=== PATIENT | male | born 1955 | race Caucasian/White ===

== ENCOUNTER → 2017-03-14 | Outpatient (REF) | payer OTHER ==
[2017-03-14 13:02] LABS: MEAN CORPUSCULAR HEMOGLOBIN 33.7 pg (27.0-33.0); MEAN CORPUSCULAR HGB CONC 34.9 g/dl (32.0-36.5); MEAN CORPUSCULAR VOLUME 96.4 fl (80.0-96.0); RED CELL DISTRIBUTION WIDTH 13.2 % (11.5-14.5); WHITE BLOOD COUNT 8.7 K/mm3 (4.0-10.0)
[2017-03-14 13:36] LABS: ALBUMIN 4.7 GM/DL (3.2-5.2); ALBUMIN/GLOBULIN RATIO 1.57 (1.00-1.93); ALKALINE PHOSPHATASE 102 U/L (45-117); ALT/SGPT 169 U/L (12-78); ANION GAP 11 MEQ/L (8-16); AST/SGOT 149 U/L (15-37); BILIRUBIN,TOTAL 0.8 MG/DL (0.2-1.0); BLOOD UREA NITROGEN 14 MG/DL (7-18); CALCIUM LEVEL 9.9 MG/DL (8.5-10.1); CARBON DIOXIDE LEVEL 32 MEQ/L (21-32); CHLORIDE LEVEL 95 MEQ/L (98-107); CHOLESTEROL LEVEL 226 MG/DL (<200); CREATININE FOR GFR 0.89 MG/DL (0.70-1.30); GAMMA GLUTAMYLTRANSPEPTIDASE 272 U/L (15-85); GLOMERULAR FILTRATION RATE > 60.0 (>56); GLUCOSE, FASTING 108 MG/DL (70-105); POTASSIUM SERUM 3.6 MEQ/L (3.5-5.1); SODIUM LEVEL 138 MEQ/L (136-145); TOTAL PROTEIN 7.7 GM/DL (6.4-8.2); TRIGLYCERIDES LEVEL 167 MG/DL (<150)
== END ==
LOC: M SFHCCLAY 09:35
PROVIDERS: ATTEND Nurse Practitioner Family
DX: K21.9 Gastro-esophageal reflux disease without esophagitis (principal); I10 Essential (primary) hypertension; R79.89 Other specified abnormal findings of blood chemistry; E78.2 Mixed hyperlipidemia; E55.9 Vitamin D deficiency, unspecified

== ENCOUNTER → 2017-05-30 | Outpatient (REF) | payer OTHER ==
[2017-05-30 16:52] LABS: ALBUMIN 4.4 GM/DL (3.2-5.2); ALBUMIN/GLOBULIN RATIO 1.38 (1.00-1.93); ALKALINE PHOSPHATASE 97 U/L (45-117); ALT/SGPT 105 U/L (12-78); ANION GAP 10 MEQ/L (8-16); AST/SGOT 101 U/L (15-37); BILIRUBIN,TOTAL 0.7 MG/DL (0.2-1.0); BLOOD UREA NITROGEN 15 MG/DL (7-18); CALCIUM LEVEL 9.4 MG/DL (8.5-10.1); CARBON DIOXIDE LEVEL 27 MEQ/L (21-32); CHLORIDE LEVEL 101 MEQ/L (98-107); CREATININE FOR GFR 0.87 MG/DL (0.70-1.30); GAMMA GLUTAMYLTRANSPEPTIDASE 272 U/L (15-85); GLOMERULAR FILTRATION RATE > 60.0 (>56); GLUCOSE, FASTING 139 MG/DL (70-105); POTASSIUM SERUM 4.1 MEQ/L (3.5-5.1); SODIUM LEVEL 138 MEQ/L (136-145); TOTAL PROTEIN 7.6 GM/DL (6.4-8.2)
[2017-05-30 17:25] LABS: BASO % 0.2 % (0.0-1.0); EOS # 0.1 K/mm3 (0.0-0.50); EOS % 0.5 % (0.0-3.0); LARGE UNSTAINED CELL # 0.2 K/mm3 (0.0-0.4); LARGE UNSTAINED CELL % 1.8 % (0.0-4.0); LYMPH % 17.9 % (24.0-44.0); MEAN CORPUSCULAR HEMOGLOBIN 33.4 pg (27.0-33.0); MEAN CORPUSCULAR HGB CONC 35.7 g/dl (32.0-36.5); MEAN CORPUSCULAR VOLUME 93.6 fl (80.0-96.0); MONO # 0.7 K/mm3 (0.0-0.8); MONO % 6.5 % (0.0-5.0); NEUTROPHILS % 73.1 % (36.0-66.0); PLATELET COUNT, AUTOMATED 310 k/mm3 (150-450); RED CELL DISTRIBUTION WIDTH 12.6 % (11.5-14.5)
== END ==
LOC: M SFHCCLAY 13:48
PROVIDERS: ATTEND Family Medicine
DX: R10.32 Left lower quadrant pain (principal)

== ENCOUNTER → 2018-07-02 | Outpatient (REF) | payer OTHER ==
[2018-07-02 11:40] LABS: HEMATOCRIT 43.9 % (42.0-52.0); HEMOGLOBIN 15.4 g/dl (13.5-17.5); MEAN CORPUSCULAR HEMOGLOBIN 32.1 pg (27.0-33.0); MEAN CORPUSCULAR HGB CONC 35.1 g/dl (32.0-36.5); MEAN CORPUSCULAR VOLUME 91.5 fl (80.0-96.0); PLATELET COUNT, AUTOMATED 320 10^3/uL (150-450); RED CELL DISTRIBUTION WIDTH 12.9 % (11.5-14.5); WHITE BLOOD COUNT 9.6 10^3/uL (4.0-10.0)
[2018-07-02 12:12] LABS: TOTAL 25(OH) VITAMIN D 29.2 NG/ML (30.0-100.0)
[2018-07-02 12:28] LABS: ALBUMIN 4.5 GM/DL (3.2-5.2); ALBUMIN/GLOBULIN RATIO 1.45 (1.00-1.93); ALKALINE PHOSPHATASE 79 U/L (45-117); ALT/SGPT 93 U/L (12-78); ANION GAP 10 MEQ/L (8-16); AST/SGOT 75 U/L (7-37); BILIRUBIN,TOTAL 1.2 MG/DL (0.2-1.0); BLOOD UREA NITROGEN 8 MG/DL (7-18); CALCIUM LEVEL 9.5 MG/DL (8.8-10.2); CARBON DIOXIDE LEVEL 31 MEQ/L (21-32); CHLORIDE LEVEL 93 MEQ/L (98-107); CHOLESTEROL LEVEL 225 MG/DL (<200); CREATININE FOR GFR 0.79 MG/DL (0.70-1.30); GAMMA GLUTAMYLTRANSPEPTIDASE 227 U/L (15-85); GLOMERULAR FILTRATION RATE > 60.0 (>49); GLUCOSE, FASTING 108 MG/DL (70-100); HDL CHOLESTEROL 83 MG/DL (>40); LDL CHOLESTEROL 126 MG/DL (<100); NON-HDL-C 142 MG/DL; POTASSIUM SERUM 3.8 MEQ/L (3.5-5.1); SODIUM LEVEL 134 MEQ/L (136-145); TOTAL PROTEIN 7.6 GM/DL (6.4-8.2); TRIGLYCERIDES LEVEL 82 MG/DL (<150)
== END ==
LOC: M SFHCCLAY 07:03
DX: K21.9 Gastro-esophageal reflux disease without esophagitis (principal); E78.2 Mixed hyperlipidemia; E55.9 Vitamin D deficiency, unspecified

== ENCOUNTER → 2019-02-19 | Outpatient (REF) | payer OTHER ==
[2019-02-19 11:43] LABS: HEMOGLOBIN A1c 5.7 %
[2019-02-19 11:47] LABS: ALBUMIN 4.4 GM/DL (3.2-5.2); BILIRUBIN,DIRECT 0.2 MG/DL (0.0-0.2); BILIRUBIN,TOTAL 0.9 MG/DL (0.2-1.0); CHOLESTEROL RISK RATIO 3.36 (<5); TOTAL PROTEIN 6.8 GM/DL (6.4-8.2)
== END ==
LOC: M SFHCCLAY 07:02
PROVIDERS: ATTEND Nurse Practitioner Family
DX: R73.01 Impaired fasting glucose (principal); E78.2 Mixed hyperlipidemia
CPT/HCPCS: 80061; 80076; 82947; 83036; G0463

== ENCOUNTER → 2019-07-30 | Outpatient (REF) | payer OTHER ==
[2019-07-30 11:48] LABS: HEMATOCRIT 47.4 % (42.0-52.0); HEMOGLOBIN 16.3 g/dl (13.5-17.5); MEAN CORPUSCULAR HEMOGLOBIN 32.3 pg (27.0-33.0); MEAN CORPUSCULAR HGB CONC 34.4 g/dl (32.0-36.5); MEAN CORPUSCULAR VOLUME 93.9 fl (80.0-96.0); PLATELET COUNT, AUTOMATED 342 10^3/uL (150-450); RED BLOOD COUNT 5.05 10^6/uL (4.30-6.10); WHITE BLOOD COUNT 7.3 10^3/uL (4.0-10.0)
[2019-07-30 11:52] LABS: ALBUMIN 4.5 GM/DL (3.2-5.2); ALT/SGPT 54 U/L (12-78); BILIRUBIN,TOTAL 1.1 MG/DL (0.2-1.0); BLOOD UREA NITROGEN 8 MG/DL (7-18); CARBON DIOXIDE LEVEL 31 MEQ/L (21-32); CHLORIDE LEVEL 94 MEQ/L (98-107); CHOLESTEROL LEVEL 191 MG/DL (<200); CHOLESTEROL RISK RATIO 2.358 (<5); CREATININE FOR GFR 0.76 MG/DL (0.70-1.30); GLOMERULAR FILTRATION RATE > 60.0 (>49); GLUCOSE, FASTING 110 MG/DL (70-100); HDL CHOLESTEROL 81 MG/DL (>40); LDL CHOLESTEROL 94 MG/DL (<100); NON-HDL-C 110 MG/DL; POTASSIUM SERUM 3.8 MEQ/L (3.5-5.1); SODIUM LEVEL 133 MEQ/L (136-145); TOTAL PROTEIN 7.3 GM/DL (6.4-8.2); TRIGLYCERIDES LEVEL 82 MG/DL (<150)
[2019-07-30 11:56] LABS: TOTAL 25(OH) VITAMIN D 41.8 NG/ML (30.0-100.0)
[2019-07-30 12:51] LABS: HEMOGLOBIN A1c 5.4 %
== END ==
LOC: M SFHCCLAY 07:05
PROVIDERS: ATTEND Nurse Practitioner Family
DX: K21.9 Gastro-esophageal reflux disease without esophagitis (principal); I10 Essential (primary) hypertension; R73.01 Impaired fasting glucose; E78.2 Mixed hyperlipidemia; E55.9 Vitamin D deficiency, unspecified

== ENCOUNTER → 2020-11-09 | Outpatient (CLI) | payer OTHER ==
--- NOTE | 2020-11-10 01:34 | REP ---
INDICATION: SUPRASCAPULAR ENTRPMENT NEUROPATHY OF LEFT SIDE COMPARISON: None. TECHNIQUE: Internal rotation, external rotation, and Y view. FINDINGS: There is subtle blunting to the calcified glenoid rim as well as very subtle early spurring along the inferior margin of the humeral head. The acromioclavicular joint is normal. The subacromial space is normal. No periarticular calcifications or loose bodies identified. 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 <Electronically signed by Francisco Kulkarni > 11/10/20 [id number]
== END ==
LOC: M CLY 15:20
PROVIDERS: ATTEND Physician Assistant
DX: G56.82 Other specified mononeuropathies of left upper limb (principal)

== ENCOUNTER → 2021-08-30 | Outpatient (CLI) | payer OTHER | LOC: M PLAIMG 10:18 | PROVIDERS: ATTEND Nurse Practitioner Family | DX: M25.512 Pain in left shoulder (principal) ==

== ENCOUNTER → 2021-12-11 | Outpatient (REF) | payer OTHER ==
[2021-12-11 11:44] LABS: BASO % 0.6 % (0.0-1.0); EOS # 0.1 10^3/uL (0.0-0.5); EOS % 1.1 % (0.0-3.0); HEMATOCRIT 41.6 % (42.0-52.0); HEMOGLOBIN 14.5 g/dl (13.5-17.5); LYMPH # 1.8 10^3/uL (1.5-5.0); LYMPH % 25.7 % (24.0-44.0); MEAN CORPUSCULAR HEMOGLOBIN 32.7 pg (27.0-33.0); MEAN CORPUSCULAR HGB CONC 34.9 g/dl (32.0-36.5); MEAN CORPUSCULAR VOLUME 93.9 fl (80.0-96.0); MONO % 14.6 % (2.0-8.0); NEUTROPHILS % 57.7 % (36.0-66.0); PLATELET COUNT, AUTOMATED 305 10^3/uL (150-450); RED BLOOD COUNT 4.43 10^6/uL (4.30-6.10)
[2021-12-11 12:12] LABS: HEMOGLOBIN A1c 5.4 %
[2021-12-11 12:39] LABS: ALBUMIN 4.5 GM/DL (3.2-5.2); ALT/SGPT 74 U/L (12-78); BILIRUBIN,TOTAL 1.1 MG/DL (0.2-1.0); BLOOD UREA NITROGEN 11 MG/DL (7-18); CALCIUM LEVEL 9.8 MG/DL (8.8-10.2); CARBON DIOXIDE LEVEL 32 MEQ/L (21-32); CHLORIDE LEVEL 98 MEQ/L (98-107); CHOLESTEROL LEVEL 220 MG/DL (<200); CREATININE FOR GFR 0.79 MG/DL (0.70-1.30); FREE T4 1.02 NG/DL (0.76-1.46); GLOMERULAR FILTRATION RATE > 60.0 (>49); GLUCOSE, FASTING 112 MG/DL (70-100); HDL CHOLESTEROL 88 MG/DL (>40); LDL CHOLESTEROL 107 MG/DL (<100); NON-HDL-C 132 MG/DL; POTASSIUM SERUM 4.1 MEQ/L (3.5-5.1); SODIUM LEVEL 137 MEQ/L (136-145); TOTAL 25(OH) VITAMIN D 61.5 NG/ML (30.0-100.0); TOTAL PROTEIN 7.1 GM/DL (6.4-8.2); TRIGLYCERIDES LEVEL 124 MG/DL (<150)
== END ==
LOC: M SFHCCLAY 07:13
PROVIDERS: ATTEND Nurse Practitioner Family
DX: S29.012A Strain of muscle and tendon of back wall of thorax, initial encounter (principal); G56.82 Other specified mononeuropathies of left upper limb; I10 Essential (primary) hypertension; E78.2 Mixed hyperlipidemia; R73.01 Impaired fasting glucose; E55.9 Vitamin D deficiency, unspecified; J30.89 Other allergic rhinitis; K21.9 Gastro-esophageal reflux disease without esophagitis; W18.30XA Fall on same level, unspecified, initial encounter; Y92.009 Unspecified place in unspecified non-institutional (private) residence as the place of occurrence of the external cause

== ENCOUNTER → 2023-04-04 | Outpatient (REF) | payer MEDICARE | LOC: M SFHCCLAY 15:10 → EEVIPCON 15:10 | PROVIDERS: ATTEND Nurse Practitioner Family | DX: L03.116 Cellulitis of left lower limb (principal) ==

== ENCOUNTER → 2023-04-04 | Outpatient (CLI) | payer MEDICARE | LOC: M CLY 15:02 | PROVIDERS: ATTEND Nurse Practitioner Family | DX: S89.92XD Unspecified injury of left lower leg, subsequent encounter (principal) ==

== ENCOUNTER → 2023-04-30 | Outpatient (CLI) | payer MEDICARE, OTHER | LOC: M RAD 07:31 | PROVIDERS: ATTEND Nurse Practitioner Family | DX: Z12.2 Encounter for screening for malignant neoplasm of respiratory organs (principal); F17.218 Nicotine dependence, cigarettes, with other nicotine-induced disorders; I25.84 Coronary atherosclerosis due to calcified coronary lesion; I70.0 Atherosclerosis of aorta; R91.8 Other nonspecific abnormal finding of lung field ==

== ENCOUNTER → 2023-12-31 | Outpatient (CLI) | payer MEDICARE, OTHER, SELFPAY | LOC: M RAD 10:38 | PROVIDERS: ATTEND Nurse Practitioner Family | DX: R10.30 Lower abdominal pain, unspecified (principal) ==

== ENCOUNTER → 2024-01-26 | Outpatient (REF) | payer MEDICARE ==
[2024-01-26 19:04] LABS: BLOOD UREA NITROGEN 11 MG/DL (9-23); CREATININE FOR GFR 0.91 MG/DL (0.70-1.30); GLOMERULAR FILTRATION RATE > 60.0 (>49)
== END ==
LOC: M LABDRAWC 17:12
PROVIDERS: ATTEND Surgery
DX: R10.30 Lower abdominal pain, unspecified (principal)

== ENCOUNTER → 2024-02-06 | Outpatient (CLI) | payer MEDICARE, OTHER, SELFPAY ==
[~2024-02-06] MED LIST: GASTROGRAFIN SOLUTION 30ML As Ordered ONE; ISOVUE-370 76% 100ML VIAL As Ordered ONE
== END ==
LOC: M RAD 07:36
PROVIDERS: ATTEND Surgery
DX: K40.20 Bilateral inguinal hernia, without obstruction or gangrene, not specified as recurrent (principal); R16.0 Hepatomegaly, not elsewhere classified; K76.0 Fatty (change of) liver, not elsewhere classified; K56.41 Fecal impaction; K57.30 Diverticulosis of large intestine without perforation or abscess without bleeding; M16.0 Bilateral primary osteoarthritis of hip; M25.451 Effusion, right hip; M25.452 Effusion, left hip
CPT/HCPCS: 74178; Q9963; Q9967

== ENCOUNTER → 2024-04-22 | Outpatient (REF) | payer SELFPAY, MEDICARE ==
[2024-04-22 19:26] LABS: APPEARANCE, URINE CLEAR (CLEAR); BACTERIA, URINE AUTO NEGATIVE (NEGATIVE); BILIRUBIN, URINE AUTO NEGATIVE (NEGATIVE); BLOOD, URINE BLOOD NEGATIVE (NEGATIVE); COLOR, URINE YELLOW (YELLOW); GLUCOSE, URINE (UA) AUTO NEGATIVE (NEGATIVE); KETONE, URINE AUTO NEGATIVE (NEGATIVE); LEUKOCYTE ESTERASE, URINE AUTO NEGATIVE (NEGATIVE); NITRITE, URINE AUTO NEGATIVE (NEGATIVE); PROTEIN, URINE AUTO NEGATIVE (NEGATIVE); RBC, URINE AUTO 0 /HPF (0-3); SPECIFIC GRAVITY URINE AUTO 1.009 (1.002-1.035); SQUAMOUS EPITHELIAL CELL UR AU 0 /HPF (0-6); UROBILINOGEN, URINE AUTO 0.2 mg/dL (0.0-2.0); WBC, URINE AUTO 1 /HPF (0-3)
== END ==
LOC: M SMT 16:56
PROVIDERS: ATTEND Urology
DX: N28.82 Megaloureter (principal)

== ENCOUNTER → 2024-08-23 | Outpatient (CLI) | payer MEDICARE | LOC: M CLY 11:29 | PROVIDERS: ATTEND Family Medicine | DX: M16.0 Bilateral primary osteoarthritis of hip (principal); Z53.9 Procedure and treatment not carried out, unspecified reason ==

== ENCOUNTER → 2024-08-23 | Outpatient (CLI) | payer MEDICARE | LOC: M CLY 11:34 | PROVIDERS: ATTEND Family Medicine | DX: M16.0 Bilateral primary osteoarthritis of hip (principal) ==

== ENCOUNTER → 2024-08-31 | Outpatient (CLI) | payer MEDICARE, OTHER | LOC: M RAD 14:18 | PROVIDERS: ATTEND Nurse Practitioner Family | DX: F17.218 Nicotine dependence, cigarettes, with other nicotine-induced disorders (principal) ==

== ENCOUNTER → 2024-09-27 | Outpatient (REF) | payer MEDICARE, OTHER ==
[2024-09-27 12:38] LABS: BASO # 0.1 10^3/uL (0.0-0.2); BASO % 0.6 % (0.0-1.0); EOS # 0.1 10^3/uL (0.0-0.5); EOS % 1.3 % (0.0-3.0); HEMATOCRIT 41.4 % (42.0-52.0); HEMOGLOBIN 14.7 g/dl (13.5-17.5); LYMPH # 2.1 10^3/uL (1.5-5.0); LYMPH % 25.1 % (24.0-44.0); MEAN CORPUSCULAR HEMOGLOBIN 33.6 pg (27.0-33.0); MEAN CORPUSCULAR HGB CONC 35.5 g/dl (32.0-36.5); MEAN CORPUSCULAR VOLUME 94.5 fl (80.0-96.0); NEUTROPHILS # 5.2 10^3/uL (1.5-8.5); NEUTROPHILS % 60.8 % (36.0-66.0); PLATELET COUNT, AUTOMATED 289 10^3/uL (150-450); RED BLOOD COUNT 4.38 10^6/uL (4.30-6.10); WHITE BLOOD COUNT 8.5 10^3/uL (4.0-10.0)
[2024-09-27 13:12] LABS: ALBUMIN 4.3 G/DL (3.2-5.2)
[2024-09-27 13:21] LABS: FERRITIN 897.8 NG/ML (10.5-307.3)
== END ==
LOC: M LABDRAWC 09:03
PROVIDERS: ATTEND Orthopaedic Surgery
DX: M25.552 Pain in left hip (principal)

== ENCOUNTER → 2024-09-27 | Outpatient (REF) | payer MEDICARE, OTHER ==
[2024-09-27 11:50] LABS: INR 0.98; PROTHROMBIN TIME 13.3 SECONDS (12.5-14.5)
[2024-09-27 13:06] LABS: HEMOGLOBIN A1c 4.8 % (4.0-6.0)
[2024-09-27 13:14] LABS: CHOLESTEROL RISK RATIO 2.12 (<5); HDL CHOLESTEROL 109.3 MG/DL (>40); LDL CHOLESTEROL 107.1 MG/DL (<100); NON-HDL-C 122.7 MG/DL; PSA SCREENING 4.71 NG/ML (< 4.00)
[2024-09-27 13:17] LABS: ALBUMIN 4.2 G/DL (3.2-5.2); ALKALINE PHOSPHATASE 238 U/L (40-129); ALT/SGPT 113 U/L (7.0-40); AST/SGOT 176 U/L (<34); BILIRUBIN,TOTAL 1.8 MG/DL (0.3-1.2); BLOOD UREA NITROGEN 18 MG/DL (9-23); CALCIUM LEVEL 9.6 MG/DL (8.3-10.6); CARBON DIOXIDE LEVEL 32 MMOL/L (20-31); CHLORIDE LEVEL 91 MMOL/L (98-107); GLOMERULAR FILTRATION RATE > 60.0 (>49); GLUCOSE, FASTING 109 MG/DL (74-106); SODIUM LEVEL 135 MMOL/L (136-145); TOTAL PROTEIN 7.6 G/DL (5.7-8.2)
[2024-09-27 13:18] LABS: THYROID STIMULATING HORMONE 1.363 uIU/ML (0.55-4.78)
[2024-09-27 13:20] LABS: FREE T4 1.4 NG/DL (0.89-1.76)
== END ==
LOC: M SFHCCLAY 08:54
PROVIDERS: ATTEND Nurse Practitioner Family
DX: I10 Essential (primary) hypertension (principal); M16.0 Bilateral primary osteoarthritis of hip; M25.552 Pain in left hip; Z12.5 Encounter for screening for malignant neoplasm of prostate
CPT/HCPCS: 80053; 80061; 82728; 83036; 83550; 84439; 84443; 85025; 85610; G0103

== ENCOUNTER → 2024-09-30 | Outpatient (REF) | payer MEDICARE, OTHER ==
[2024-09-30 12:58] LABS: HEPATITIS B SURFACE ANTIGEN NEGATIVE (NEGATIVE)
[2024-09-30 13:19] LABS: HEPATITIS B CORE ANTIBODY IGM NEGATIVE (NEGATIVE); HEPATITIS C VIRUS ABY INDEX < 0.02 INDEX (<0.8)
[2024-09-30 13:52] LABS: ALBUMIN 4.5 G/DL (3.2-5.2); ALKALINE PHOSPHATASE 259 U/L (40-129); ALT/SGPT 119 U/L (7.0-40); AST/SGOT 184 U/L (<34); BILIRUBIN,TOTAL 1.2 MG/DL (0.3-1.2); BLOOD UREA NITROGEN 14 MG/DL (9-23); CALCIUM LEVEL 10.2 MG/DL (8.3-10.6); CARBON DIOXIDE LEVEL 32 MMOL/L (20-31); CHLORIDE LEVEL 91 MMOL/L (98-107); CREATININE FOR GFR 0.79 MG/DL (0.70-1.30); GLOMERULAR FILTRATION RATE > 60.0 (>49); GLUCOSE, FASTING 128 MG/DL (74-106); MAGNESIUM LEVEL 1.9 MG/DL (1.8-2.4); POTASSIUM SERUM 2.8 MMOL/L (3.5-5.1); SODIUM LEVEL 136 MMOL/L (136-145); TOTAL PROTEIN 7.7 G/DL (5.7-8.2)
== END ==
LOC: M SFHCCLAY 08:47
PROVIDERS: ATTEND Family Medicine
DX: Z01.89 Encounter for other specified special examinations (principal); E87.6 Hypokalemia; R74.8 Abnormal levels of other serum enzymes

== ENCOUNTER 2024-10-04 10:56 | Outpatient (RCR) | payer MEDICARE, OTHER | END 2024-10-29 | LOC: M PT 10:56 | PROVIDERS: ATTEND Orthopaedic Surgery | DX: M25.552 Pain in left hip (principal) ==

== ENCOUNTER → 2024-10-04 | Outpatient (REF) | payer MEDICARE, OTHER ==
[2024-10-04 13:35] LABS: ALKALINE PHOSPHATASE 221 U/L (40-129); ALT/SGPT 111 U/L (7.0-40); AST/SGOT 118 U/L (<34); BILIRUBIN,TOTAL 0.7 MG/DL (0.3-1.2); BLOOD UREA NITROGEN 12 MG/DL (9-23); CALCIUM LEVEL 10.5 MG/DL (8.3-10.6); CARBON DIOXIDE LEVEL 34 MMOL/L (20-31); CHLORIDE LEVEL 92 MMOL/L (98-107); CREATININE FOR GFR 0.76 MG/DL (0.70-1.30); GLOMERULAR FILTRATION RATE > 60.0 (>49); GLUCOSE, FASTING 119 MG/DL (74-106); POTASSIUM SERUM 3.2 MMOL/L (3.5-5.1); SODIUM LEVEL 136 MMOL/L (136-145); TOTAL PROTEIN 7.4 G/DL (5.7-8.2)
== END ==
LOC: M SFHCCLAY 08:27
PROVIDERS: ATTEND Family Medicine
DX: I10 Essential (primary) hypertension (principal)

== ENCOUNTER → 2024-10-08 | Outpatient (REF) | payer MEDICARE, OTHER ==
[2024-10-08 14:44] LABS: ALBUMIN 4.1 G/DL (3.2-5.2); ALKALINE PHOSPHATASE 220 U/L (40-129); ALT/SGPT 89 U/L (7.0-40); AST/SGOT 85 U/L (<34); BILIRUBIN,TOTAL 0.8 MG/DL (0.3-1.2); BLOOD UREA NITROGEN 12 MG/DL (9-23); CALCIUM LEVEL 9.4 MG/DL (8.3-10.6); CARBON DIOXIDE LEVEL 28 MMOL/L (20-31); CHLORIDE LEVEL 100 MMOL/L (98-107); CREATININE FOR GFR 0.64 MG/DL (0.70-1.30); GLOMERULAR FILTRATION RATE > 60.0 (>49); GLUCOSE, FASTING 104 MG/DL (74-106); SODIUM LEVEL 138 MMOL/L (136-145)
== END ==
LOC: M SFHCCLAY 10:09
PROVIDERS: ATTEND Family Medicine
DX: R79.89 Other specified abnormal findings of blood chemistry (principal)

== ENCOUNTER → 2024-11-15 | Outpatient (REF) | payer MEDICARE, OTHER ==
[2024-11-15 17:48] LABS: ALBUMIN 3.9 G/DL (3.2-5.2); ALKALINE PHOSPHATASE 295 U/L (40-129); ALT/SGPT 73 U/L (7.0-40); AST/SGOT 104 U/L (<34); BLOOD UREA NITROGEN 6 MG/DL (9-23); CALCIUM LEVEL 9.2 MG/DL (8.3-10.6); CARBON DIOXIDE LEVEL 30 MMOL/L (20-31); CHLORIDE LEVEL 97 MMOL/L (98-107); CREATININE FOR GFR 0.63 MG/DL (0.70-1.30); GLOMERULAR FILTRATION RATE > 60.0 (>49); GLUCOSE, FASTING 116 MG/DL (74-106); POTASSIUM SERUM 4.3 MMOL/L (3.5-5.1); SODIUM LEVEL 139 MMOL/L (136-145); TOTAL PROTEIN 7.1 G/DL (5.7-8.2)
== END ==
LOC: M SFHCCLAY 11:19
PROVIDERS: ATTEND Nurse Practitioner Family
DX: E88.89 Other specified metabolic disorders (principal)

== ENCOUNTER → 2024-11-30 | Outpatient (CLI) | payer MEDICARE, OTHER ==
[~2024-11-30] MED LIST changes: -GASTROGRAFIN SOLUTION 30ML As Ordered ONE
== END ==
LOC: M RAD 08:25
PROVIDERS: ATTEND Urology
DX: N28.82 Megaloureter (principal)
CPT/HCPCS: 74178; Q9967

== ENCOUNTER → 2024-12-16 | Outpatient (REF) | payer MEDICARE, OTHER | LOC: M SFHCCLAY 08:04 | PROVIDERS: ATTEND Urology | DX: R97.20 Elevated prostate specific antigen [PSA] (principal) ==

== ENCOUNTER → 2025-02-01 | Outpatient (REF) | payer MEDICARE, OTHER | LOC: M SMT 13:43 | PROVIDERS: ATTEND Urology | DX: R97.20 Elevated prostate specific antigen [PSA] (principal) ==

== ENCOUNTER → 2025-04-18 | Outpatient (CLI) | payer MEDICARE, OTHER ==
[~2025-04-18] MED LIST changes: +ASPI81CH33 PO; +ATEN100T PO; +B-122500 PO; +CETI5SOL3 PO; +CYCL-707 PO; +DICY-61 PO; +FELO10TA28 PO; +FOLI0.4T5 PO; +HYDR-3490 PO; -ISOVUE-370 76% 100ML VIAL As Ordered ONE; +MAGN100T PO; +MELA10CA PO; +OMEG10002 PO; +OPTI0.5D2 OP; +PANT40TA29 PO; +POTA-298 PO; +THERTAB52 PO; +VITA100093 PO; +VITA500C3 PO; +ZINC100T3 PO
== END ==
LOC: M CLY 08:00
PROVIDERS: ATTEND Urology
DX: Z01.818 Encounter for other preprocedural examination (principal); C61 Malignant neoplasm of prostate

== ENCOUNTER → 2025-04-18 | Outpatient (REF) | payer MEDICARE, OTHER ==
[~2025-04-18] MED LIST changes: +ASPI81TA26 PO; +CIPR-249 PO; +COLA100C5 PO; -OPTI0.5D2 OP; +OPTI0.5D2 OU; +PERCOCET PO
[2025-04-18 11:55] LABS: PLATELET COUNT, AUTOMATED 353 10^3/uL (150-450)
[2025-04-18 12:07] LABS: INR 0.97
[2025-04-18 12:22] LABS: CALCIUM LEVEL 9.6 MG/DL (8.3-10.6); CARBON DIOXIDE LEVEL 29 MMOL/L (20-31); CHLORIDE LEVEL 92 MMOL/L (98-107); CREATININE FOR GFR 0.58 MG/DL (0.70-1.30); GLOMERULAR FILTRATION RATE > 90.0 (>49); POTASSIUM SERUM 3.5 MMOL/L (3.5-5.1); SODIUM LEVEL 134 MMOL/L (136-145)
== END ==
LOC: M LABSMT 08:28
PROVIDERS: ATTEND Urology
DX: C61 Malignant neoplasm of prostate (principal); Z01.818 Encounter for other preprocedural examination; N39.0 Urinary tract infection, site not specified

== ENCOUNTER 2025-04-28 06:14 | Day surgery (SDC) | payer MEDICARE, OTHER ==
[2025-04-28] VITALS (8 sets, daily range): BP systolic 116–137; BP diastolic 66–81; TEMP 96.9–97.8; O2SAT 96–99
[~2025-04-28] VITALS: Ht 172.7 cm; Wt 83.5 kg
[~2025-04-28 06:14] MED LIST changes: -ASPI81TA26 PO; -CIPR-249 PO; -COLA100C5 PO; -PERCOCET PO
[2025-04-28] MEDS ORDERED: LR 1,000 ML IV SCH (06:20)
[2025-04-28] MEDS ORDERED: ROCURONIUM BROMIDE 50MG/5ML VIAL As Ordered ONE (07:09)
[2025-04-28] MEDS ORDERED: KETOROLAC 30 MG/ML 1 ML VIAL As Ordered ONE (07:09)
[2025-04-28] MEDS ORDERED: dexAMETHasone 4 MG/ML 1 ML VIAL As Ordered ONE (07:09)
[2025-04-28] MEDS ORDERED: MIDAZOLAM INJ 2 MG/2 ML VIAL As Ordered ONE (07:09)
[2025-04-28] MEDS ORDERED: LIDOCAINE 2% 100 MG/5 ML SDV (FOR ANES.) As Ordered ONE (07:09)
[2025-04-28] MEDS ORDERED: SUGAMMADEX SODIUM 500 MG/5 ML VIAL As Ordered ONE (07:09)
[2025-04-28] MEDS ORDERED: ONDANSETRON 4MG 2ML VIAL As Ordered ONE (07:09)
[2025-04-28] MEDS ORDERED: ACETAMINOPHEN 1000MG/100ML IV BAG As Ordered ONE (07:10)
[2025-04-28] MEDS ORDERED: ONDANSETRON 4MG 2ML VIAL IV PRN (07:35)
[2025-04-28] MEDS ORDERED: ACETAMINOPHEN 325 MG TAB PO PRN (07:35)
[2025-04-28] MEDS ORDERED: PERCOCET 5MG/325MG TAB PO PRN (07:35)
[2025-04-28] MEDS: HEPARIN SOD 5000 UNITS/ML 1 ML VIAL/SYRINGE As Ordered ONE (07:44)
[2025-04-28] MEDS: ceFAZolin SOD 2 GM IV ONCE IV ONE (08:05)
[2025-04-28] MEDS ORDERED: HOME MED LIST COMPLETE! XX SCH (08:15)
[2025-04-28] MEDS ORDERED: ASPI81TA26 PO (08:15)
[2025-04-28] MEDS ORDERED: HYDROmorphone HCL 2 MG/ML 1 ML VIAL As Ordered ONE (08:17)
[2025-04-28] MEDS: LIDOCAINE 1% SDV 30 ML VIAL As Ordered ONE (12:41)
[2025-04-28] MEDS ORDERED: HYDROMORPHONE HCL 0.5 MG/0.5 ML SYRINGE IV PRN (12:55)
[2025-04-28] MEDS: LR 1,000 ML IV SCH (12:55)
[2025-04-28 13:53] LABS: PLATELET COUNT, AUTOMATED 365 10^3/uL (150-450)
[2025-04-28 14:17] LABS: CALCIUM LEVEL 9.1 MG/DL (8.3-10.6); CARBON DIOXIDE LEVEL 26 MMOL/L (20-31); CHLORIDE LEVEL 92 MMOL/L (98-107); CREATININE FOR GFR 0.69 MG/DL (0.70-1.30); GLOMERULAR FILTRATION RATE > 90.0 (>49); POTASSIUM SERUM 3.3 MMOL/L (3.5-5.1); SODIUM LEVEL 135 MMOL/L (136-145)
[2025-04-28] MEDS: DOCUSATE SODIUM 100 MG CAPSULE PO SCH (15:00)
[2025-04-28] MEDS: HEPARIN SOD 5000 UNITS/ML 1 ML VIAL/SYRINGE SQ ONE (15:00)
[2025-04-28] MEDS: NS (Normal Saline) 0.9% 1,000 ML IV SCH (15:00)
[2025-04-28] MEDS: HEPARIN SOD 5000 UNITS/ML 1 ML VIAL/SYRINGE SC SCH (20:28)
[2025-04-28] MEDS: ceFAZolin SOD 1 GM in DEXTROSE 5% (D5W) ADV/MINI-BAG 50 ML IV SCH (20:29)
[2025-04-28] MEDS: UNRESOLVED PATIENT OWN MED ORDER XX SCH (21:00)
[2025-04-28] MEDS ORDERED: PERCOCET PO (22:24)
[2025-04-28] MEDS ORDERED: CIPR-249 PO (22:24)
[2025-04-28] MEDS ORDERED: COLA100C5 PO (22:24)
[2025-04-29] VITALS: BP 129/71; TEMP 96.9; O2SAT 99
[2025-04-29 04:00] VITALS: BP 140/73; TEMP 97.3; O2SAT 98
[2025-04-29 07:53] LABS: PLATELET COUNT, AUTOMATED 307 10^3/uL (150-450)
[2025-04-29 08:40] VITALS: BP 156/76; TEMP 97.3; O2SAT 98
[2025-04-29] MEDS: PANTOPRAZOLE 40MG TAB PO SCH (08:46)
[2025-04-29] MEDS: CETIRIZINE 10 MG TAB PO SCH (08:47)
[2025-04-29] MEDS: hydroCHLOROthiazide 25 MG TAB PO SCH (08:47)
[2025-04-29 08:57] LABS: CALCIUM LEVEL 7.6 MG/DL (8.3-10.6); CARBON DIOXIDE LEVEL 29 MMOL/L (20-31); CHLORIDE LEVEL 95 MMOL/L (98-107); CREATININE FOR GFR 0.59 MG/DL (0.70-1.30); GLOMERULAR FILTRATION RATE > 90.0 (>49); POTASSIUM SERUM 2.7 MMOL/L (3.5-5.1); SODIUM LEVEL 135 MMOL/L (136-145)
[2025-04-29] MEDS ORDERED: FELODIPINE 10 MG PO SCH (09:00)
[2025-04-29] MEDS ORDERED: CYCLOBENZAPRINE 10 MG TABLET PO SCH (09:00)
[2025-04-29] MEDS: PERCOCET 5MG/325MG TAB PO PRN (09:12)
[2025-04-29] MEDS ORDERED: KCL 20MEQ IN 100ML SWI (KRUN) 20 MEQ in IV 1 EA IV ONE (09:45)
[2025-04-29] MEDS: KCL 10MEQ/100ML SWI (KRUN) 10 MEQ in IV 1 EA IV SCH (10:49)
[2025-04-29] MEDS: POTASSIUM CHLORIDE 10MEQ SR TABLET PO ONE (11:59)
[2025-04-29 12:48] VITALS: BP 148/76; TEMP 96.9; O2SAT 97
[2025-04-29 13:21] LABS: CALCIUM LEVEL 9.0 MG/DL (8.3-10.6); CARBON DIOXIDE LEVEL 31 MMOL/L (20-31); CHLORIDE LEVEL 91 MMOL/L (98-107); CREATININE FOR GFR 0.69 MG/DL (0.70-1.30); GLOMERULAR FILTRATION RATE > 90.0 (>49); POTASSIUM SERUM 3.5 MMOL/L (3.5-5.1); SODIUM LEVEL 133 MMOL/L (136-145)
== END 2025-04-29 15:45 | disposition home or self-care (01) ==
LOC: EEVIPCON 06:14 → M SDC 06:14 → M MS4PR 14:55 → M SDC 04-29 15:45
PROVIDERS: ATTEND Urology
DX: C61 Malignant neoplasm of prostate (principal); I10 Essential (primary) hypertension; K21.9 Gastro-esophageal reflux disease without esophagitis; F17.210 Nicotine dependence, cigarettes, uncomplicated; Z88.0 Allergy status to penicillin; Z79.899 Other long term (current) drug therapy
CPT/HCPCS: 36415; 38571; 55866; 80048; 85027; 86850; 86900; 86901; 88307; 88309; 96361; 96365; 96372; 96375; 96376; J0131; J0665; J0690; J1100; J1171; J2250; J2405; J3010; S2900

== ENCOUNTER → 2025-06-14 | Outpatient (REF) | payer MEDICARE, OTHER ==
[~2025-06-14] MED LIST changes: +ASPI81TA26 PO; +CIPR-249 PO; +COLA100C5 PO; -FOLI0.4T5 PO; +FOLI400T2 PO; +PERCOCET PO
== END ==
LOC: M LABSMT 07:06
PROVIDERS: ATTEND Urology
DX: C61 Malignant neoplasm of prostate (principal)

== ENCOUNTER → 2025-07-21 | Outpatient (REF) | payer MEDICARE, OTHER ==
[~2025-07-21] MED LIST changes: +B-1100TA2 PO; +CETI10TA4 PO; +FURO40TA2 PO; +MAGN250T11 PO; +SPIR50TA4 PO
[2025-07-21 18:58] LABS: BASO # 0.1 10^3/uL (0.0-0.2); BASO % 0.3 % (0.0-1.0); EOS # 0.1 10^3/uL (0.0-0.5); EOS % 0.2 % (0.0-3.0); LYMPH # 1.8 10^3/uL (1.5-5.0); LYMPH % 5.8 % (24.0-44.0); MONO # 2.1 10^3/uL (0.0-0.8); MONO % 6.7 % (2.0-8.0); NEUTROPHILS # 27.5 10^3/uL (1.5-8.5); NEUTROPHILS % 86.2 % (36.0-66.0); PLATELET COUNT, AUTOMATED 572 10^3/uL (150-450)
[2025-07-21 19:02] LABS: ALT/SGPT 55 U/L (7.0-40); AST/SGOT 134 U/L (<34); CALCIUM LEVEL 8.7 MG/DL (8.3-10.6); CARBON DIOXIDE LEVEL 26 MMOL/L (20-31); CHLORIDE LEVEL 92 MMOL/L (98-107); CREATININE FOR GFR 1.25 MG/DL (0.70-1.30); GLOMERULAR FILTRATION RATE 63.1 (>49); MAGNESIUM LEVEL 1.9 MG/DL (1.8-2.4); POTASSIUM SERUM 5.2 MMOL/L (3.5-5.1); SODIUM LEVEL 133 MMOL/L (136-145)
== END ==
LOC: M SFHCCLAY 11:15
PROVIDERS: ATTEND Nurse Practitioner Family
DX: J90 Pleural effusion, not elsewhere classified (principal); K70.31 Alcoholic cirrhosis of liver with ascites

== ENCOUNTER → 2025-07-21 | Outpatient (CLI) | payer MEDICARE, OTHER | LOC: M CLY 11:23 | PROVIDERS: ATTEND Nurse Practitioner Family | DX: J90 Pleural effusion, not elsewhere classified (principal) ==

== ENCOUNTER 2025-07-22 10:24 | Observation (INO) | payer MEDICARE, OTHER ==
[~2025-07-22] VITALS: Ht 167.6 cm; Wt 80.8 kg
[~2025-07-22 10:24] MED LIST changes: -B-1100TA2 PO; -CETI10TA4 PO; -FURO40TA2 PO; -MAGN250T11 PO; -SPIR50TA4 PO
[2025-07-22 13:28] LABS: BASO # 0.1 10^3/uL (0.0-0.2); BASO % 0.2 % (0.0-1.0); EOS # 0.1 10^3/uL (0.0-0.5); EOS % 0.2 % (0.0-3.0); LYMPH # 2.3 10^3/uL (1.5-5.0); LYMPH % 6.8 % (24.0-44.0); MONO # 2.5 10^3/uL (0.0-0.8); MONO % 7.4 % (2.0-8.0); NEUTROPHILS # 28.7 10^3/uL (1.5-8.5); NEUTROPHILS % 84.7 % (36.0-66.0); PLATELET COUNT, AUTOMATED 586 10^3/uL (150-450)
[2025-07-22 13:48] LABS: INR 1.2
[2025-07-22 13:53] LABS: ALT/SGPT 59.0 U/L (7.0-40); AST/SGOT 140.0 U/L (<34); CALCIUM LEVEL 8.7 MG/DL (8.3-10.6); CARBON DIOXIDE LEVEL 26.0 MMOL/L (20-31); CHLORIDE LEVEL 93.0 MMOL/L (98-107); CREATININE FOR GFR 1.24 MG/DL (0.70-1.30); GLOMERULAR FILTRATION RATE 63.7 (>49); POTASSIUM SERUM 4.7 MMOL/L (3.5-5.1); SODIUM LEVEL 132.0 MMOL/L (136-145)
[2025-07-22 13:54] LABS: C REACTIVE PROTEIN QUANTITATIV 9.69 MG/DL (<1.0)
[2025-07-22] MEDS: NS (Normal Saline) 0.9% 1,000 ML IV SCH (14:23)
[2025-07-22 15:05] LABS: KETONE, URINE AUTO RFX NEGATIVE (NEGATIVE); LEUKOCYTE ESTERASE UR AUTO RFX NEGATIVE (NEGATIVE); MUCUS, URINE RFX SMALL (NEGATIVE); NITRITE, URINE AUTO RFX NEGATIVE (NEGATIVE); RBC, URINE AUTO RFX 0 /HPF (0-3); SQUAM EPITHELIAL CELL UR AURFX 0 /HPF (0-6); WBC, URINE AUTO RFX 2 /HPF (0-3)
[2025-07-22] MEDS ORDERED: ACETAMINOPHEN 325 MG TAB PO PRN (16:10)
[2025-07-22 16:35] LABS: APPEARANCE, BODY FLUID CLEAR (CLEAR); PERITONEAL FL COLOR YELLOW (COLORLESS); SOURCE, BODY FLUID PERITONEAL
[2025-07-22] MEDS: cefTRIAXone SOD 2 GM in DEXTROSE 5% (D5W) ADV/MINI-BAG 50 ML IV ONE (17:33)
[2025-07-22] MEDS ORDERED: CETI10TA4 PO (17:54)
[2025-07-22] MEDS ORDERED: SPIR50TA4 PO (17:54)
[2025-07-22] MEDS ORDERED: FURO40TA2 PO (17:54)
[2025-07-22] MEDS ORDERED: MAGN250T11 PO (17:55)
[2025-07-22] MEDS ORDERED: HOME MED LIST COMPLETE! XX SCH (17:55)
[2025-07-22] MEDS ORDERED: ASPIRIN 81 MG ENTERIC TABLET PO SCH (21:00)
[2025-07-22] MEDS: THIAMINE 200MG 2ML VIAL IM ONE (21:39)
[2025-07-22] MEDS: DOCUSATE SODIUM 100 MG CAPSULE PO SCH (21:39)
[2025-07-22 22:45] VITALS: BP 119/68; TEMP 97.2; O2SAT 99
[2025-07-23 04:13] VITALS: BP 100/56; TEMP 97.7; O2SAT 96
[2025-07-23 07:09] LABS: BASO # 0.1 10^3/uL (0.0-0.2); BASO % 0.3 % (0.0-1.0); EOS # 0.2 10^3/uL (0.0-0.5); EOS % 0.5 % (0.0-3.0); LYMPH # 2.3 10^3/uL (1.5-5.0); LYMPH % 7.6 % (24.0-44.0); MONO # 2.1 10^3/uL (0.0-0.8); MONO % 6.9 % (2.0-8.0); NEUTROPHILS # 25.4 10^3/uL (1.5-8.5); NEUTROPHILS % 84.0 % (36.0-66.0); PLATELET COUNT, AUTOMATED 496 10^3/uL (150-450)
[2025-07-23 07:54] LABS: ALT/SGPT 48.0 U/L (7.0-40); AST/SGOT 130.0 U/L (<34); CALCIUM LEVEL 8.0 MG/DL (8.3-10.6); CARBON DIOXIDE LEVEL 29.0 MMOL/L (20-31); CHLORIDE LEVEL 96.0 MMOL/L (98-107); CREATININE FOR GFR 0.95 MG/DL (0.70-1.30); GLOMERULAR FILTRATION RATE 87.7 (>49); POTASSIUM SERUM 5.7 MMOL/L (3.5-5.1); SODIUM LEVEL 134.0 MMOL/L (136-145)
[2025-07-23] MEDS: FOLIC ACID 1 MG TAB PO SCH (08:37)
[2025-07-23] MEDS: THIAMINE 100 MG TAB PO SCH (08:37)
[2025-07-23] MEDS: SPIRONOLACTONE 50 MG TAB PO SCH (08:37)
[2025-07-23] MEDS: PANTOPRAZOLE 40MG TAB PO SCH (08:37)
[2025-07-23 10:30] VITALS: BP 110/71
[2025-07-23] MEDS: FUROSEMIDE 20 MG TAB PO SCH (10:30)
[2025-07-23] MEDS ORDERED: cefTRIAXone SOD 2 GM in DEXTROSE 5% (D5W) ADV/MINI-BAG 50 ML IV SCH (17:00)
[2025-07-23] MEDS ORDERED: ASPIRIN 81 MG ENTERIC TABLET PO SCH (21:00)
[2025-07-29] MEDS ORDERED: B-1100TA2 PO (10:44)
== END 2025-07-23 11:42 | disposition home or self-care (01) ==
LOC: M ED 10:24 → M ED INP 10:25 → M MS4PR 22:56
PROVIDERS: ADMIT Student in an Organized Health Care Education/Training Program; ATTEND Student in an Organized Health Care Education/Training Program
DX: K70.31 Alcoholic cirrhosis of liver with ascites (principal); R14.0 Abdominal distension (gaseous); F10.288 Alcohol dependence with other alcohol-induced disorder; D72.822 Plasmacytosis; D72.821 Monocytosis (symptomatic); D72.810 Lymphocytopenia; D53.9 Nutritional anemia, unspecified; D75.839 Thrombocytosis, unspecified; Z85.46 Personal history of malignant neoplasm of prostate; Z90.79 Acquired absence of other genital organ(s); K21.9 Gastro-esophageal reflux disease without esophagitis; I10 Essential (primary) hypertension; Z96.643 Presence of artificial hip joint, bilateral; Z80.0 Family history of malignant neoplasm of digestive organs; Z80.42 Family history of malignant neoplasm of prostate; Z88.0 Allergy status to penicillin; Z79.899 Other long term (current) drug therapy; Z79.82 Long term (current) use of aspirin
CPT/HCPCS: 36415; 49083; 71045; 80048; 80053; 80076; 80503; 81001; 82042; 82140; 82150; 82945; 83605; 84145; 84157; 85025; 85610; 85730; 86140; 86850; 86900; 86901; 87040; 87070; 87075; 87077; 87102; 87116; 87186; 87205; 87206; 89051; 93005; 93041; 94760; 96361; 96365; 96372; 99285; G0378; J0696; J3411

== ENCOUNTER → 2025-07-29 | Outpatient (CLI) | payer MEDICARE, OTHER ==
[~2025-07-29] MED LIST changes: +B-1100TA2 PO; +CETI10TA4 PO; +FURO40TA2 PO; +MAGN250T11 PO; +SPIR50TA4 PO; +med rec comment
[2025-07-29 12:00] VITALS: TEMP 97.6
[2025-07-29 12:53] VITALS: BP 101/63; O2SAT 98
== END ==
LOC: M IRPRO 11:48
PROVIDERS: ATTEND Nurse Practitioner Family
DX: K70.31 Alcoholic cirrhosis of liver with ascites (principal)
CPT/HCPCS: 49083; G0463

== ENCOUNTER 2025-08-03 13:26 | Inpatient (IN) | payer MEDICARE, OTHER ==
[~2025-08-03] VITALS: Ht 172.7 cm; Wt 75.3 kg
[~2025-08-03 13:26] MED LIST changes: -med rec comment
[2025-08-03 14:18] LABS: BASO # 0.1 10^3/uL (0.0-0.2); BASO % 0.2 % (0.0-1.0); EOS # 0.0 10^3/uL (0.0-0.5); EOS % 0.0 % (0.0-3.0); LYMPH # 1.0 10^3/uL (1.5-5.0); LYMPH % 2.8 % (24.0-44.0); MONO # 1.4 10^3/uL (0.0-0.8); MONO % 4.0 % (2.0-8.0); NEUTROPHILS # 32.2 10^3/uL (1.5-8.5); NEUTROPHILS % 92.1 % (36.0-66.0); PLATELET COUNT, AUTOMATED 657 10^3/uL (150-450)
[2025-08-03] MEDS: NS (Normal Saline) 0.9% 1,000 ML IV SCH ×2 (14:29→20:32)
[2025-08-03 14:37] LABS: ALT/SGPT 58.0 U/L (7.0-40); AST/SGOT 104.0 U/L (<34); CALCIUM LEVEL 9.4 MG/DL (8.3-10.6); CARBON DIOXIDE LEVEL 21.0 MMOL/L (20-31); CHLORIDE LEVEL 92.0 MMOL/L (98-107); CREATININE FOR GFR 2.97 MG/DL (0.70-1.30); GLOMERULAR FILTRATION RATE 22.3 (>49); POTASSIUM SERUM 4.7 MMOL/L (3.5-5.1); SODIUM LEVEL 134.0 MMOL/L (136-145)
[2025-08-03 14:38] LABS: INR 1.38
[2025-08-03] MEDS: MEROPENEM 2 GM, VIAL MATE ADAPTER 1 EACH in NS 100 ML IV ONE (14:59)
[2025-08-03] MEDS: [UNRECOGNIZED DRUG - OTHER] IV STA (16:23)
[2025-08-03] MEDS: NS 0.9% IV STA (16:23)
[2025-08-03] MEDS ORDERED: HOME MED LIST COMPLETE! XX SCH (19:30)
[2025-08-03] MEDS ORDERED: med rec comment (19:31)
[2025-08-03] MEDS ORDERED: MEROPENEM 2 GM in SODIUM CHLORIDE 0.9% INJ 100 ML IV SCH (19:45)
[2025-08-03] MEDS: ONDANSETRON 4MG/2ML VIAL IV PRN (21:03)
[2025-08-03] MEDS: LACTULOSE 20 GM/30 ML SYRUP UDC PO SCH (23:07)
[2025-08-03] MEDS: ASPIRIN 81 MG ENTERIC TABLET PO SCH (23:07)
[2025-08-03 23:30] VITALS: BP 110/57; TEMP 97.3; O2SAT 95
[2025-08-04] VITALS (10 sets, daily range): BP systolic 97–115; BP diastolic 53–62; TEMP 97–97.6; O2SAT 95–97
[2025-08-04] MEDS: MEROPENEM 2 GM, VIAL MATE ADAPTER 1 EACH in NS 100 ML IV SCH (02:38)
[2025-08-04] MEDS ORDERED: CEFEPIME HCL 2 GM in DEXTROSE 5% (D5W) ADV/MINI-BAG 50 ML IV SCH (03:00)
[2025-08-04 05:59] LABS: PLATELET COUNT, AUTOMATED 524 10^3/uL (150-450)
[2025-08-04 06:22] LABS: ALT/SGPT 40.0 U/L (7.0-40); AST/SGOT 61.0 U/L (<34); CALCIUM LEVEL 8.3 MG/DL (8.3-10.6); CARBON DIOXIDE LEVEL 20.0 MMOL/L (20-31); CHLORIDE LEVEL 99.0 MMOL/L (98-107); CREATININE FOR GFR 2.51 MG/DL (0.70-1.30); GLOMERULAR FILTRATION RATE 27.3 (>49); MAGNESIUM LEVEL 2.3 MG/DL (1.8-2.4); POTASSIUM SERUM 4.7 MMOL/L (3.5-5.1); SODIUM LEVEL 137.0 MMOL/L (136-145)
[2025-08-04] MEDS: THIAMINE 100 MG TAB PO SCH (09:50)
[2025-08-04] MEDS: LACTULOSE 20 GM/30 ML SYRUP UDC PO SCH ×2 (09:51→20:00)
[2025-08-04] MEDS: PANTOPRAZOLE 40MG TAB PO SCH (09:51)
[2025-08-04 10:05] LABS: APPEARANCE, BODY FLUID CLOUDY (CLEAR); ASCITES FL COLOR YELLOW (COLORLESS); SOURCE, BODY FLUID ASCITES
[2025-08-04] MEDS: LINEZOLID 600 MG TABLET PO SCH (13:04)
[2025-08-04] MEDS: ACETAMINOPHEN 325 MG TAB PO PRN (20:00)
[2025-08-04 21:51] LABS: APPEARANCE, URINE CLEAR (CLEAR); BACTERIA, URINE AUTO NEGATIVE (NEGATIVE); BILIRUBIN, URINE AUTO NEGATIVE (NEGATIVE); BLOOD, URINE BLOOD NEGATIVE (NEGATIVE); GLUCOSE, URINE (UA) AUTO NEGATIVE (NEGATIVE); KETONE, URINE AUTO NEGATIVE (NEGATIVE); LEUKOCYTE ESTERASE, URINE AUTO NEGATIVE (NEGATIVE); NITRITE, URINE AUTO NEGATIVE (NEGATIVE); PROTEIN, URINE AUTO NEGATIVE (NEGATIVE); RBC, URINE AUTO 1 /HPF (0-3); SPECIFIC GRAVITY URINE AUTO 1.019 (1.002-1.035); SQUAMOUS EPITHELIAL CELL UR AU 0 /HPF (0-6); UROBILINOGEN, URINE AUTO 4.0 mg/dL (0.0-2.0); WBC, URINE AUTO 2 /HPF (0-3)
[2025-08-05] VITALS (19 sets, daily range): BP systolic 96–129; BP diastolic 55–74; TEMP 96.8–98.8; O2SAT 94–98
[2025-08-05 05:58] LABS: BASO # 0.1 10^3/uL (0.0-0.2); BASO % 0.2 % (0.0-1.0); EOS # 0.1 10^3/uL (0.0-0.5); EOS % 0.3 % (0.0-3.0); LYMPH # 1.4 10^3/uL (1.5-5.0); LYMPH % 4.6 % (24.0-44.0); MONO # 2.1 10^3/uL (0.0-0.8); MONO % 6.8 % (2.0-8.0); NEUTROPHILS # 27.2 10^3/uL (1.5-8.5); NEUTROPHILS % 87.3 % (36.0-66.0); PLATELET COUNT, AUTOMATED 477 10^3/uL (150-450)
[2025-08-05 06:30] LABS: ALT/SGPT 31.0 U/L (7.0-40); AST/SGOT 66.0 U/L (<34); CALCIUM LEVEL 8.5 MG/DL (8.3-10.6); CARBON DIOXIDE LEVEL 19.0 MMOL/L (20-31); CHLORIDE LEVEL 102.0 MMOL/L (98-107); CREATININE FOR GFR 1.7 MG/DL (0.70-1.30); GLOMERULAR FILTRATION RATE 43.6 (>49); POTASSIUM SERUM 4.2 MMOL/L (3.5-5.1); SODIUM LEVEL 138.0 MMOL/L (136-145)
[2025-08-05 06:43] LABS: INR 1.48
[2025-08-05] MEDS: SODIUM BICARBONATE 325 MG TAB PO SCH (11:05)
[2025-08-06] VITALS (16 sets, daily range): BP systolic 116–133; BP diastolic 62–73; TEMP 96.8–98.6; O2SAT 94–99
[2025-08-06 05:54] LABS: BASO # 0.0 10^3/uL (0.0-0.2); BASO % 0.1 % (0.0-1.0); EOS # 0.2 10^3/uL (0.0-0.5); EOS % 0.7 % (0.0-3.0); LYMPH # 1.3 10^3/uL (1.5-5.0); LYMPH % 5.0 % (24.0-44.0); MONO # 2.0 10^3/uL (0.0-0.8); MONO % 7.5 % (2.0-8.0); NEUTROPHILS # 22.4 10^3/uL (1.5-8.5); NEUTROPHILS % 86.2 % (36.0-66.0)
[2025-08-06 06:00] LABS: PLATELET COUNT, AUTOMATED 348 10^3/uL (150-450)
[2025-08-06 06:19] LABS: ALT/SGPT 29.0 U/L (7.0-40); AST/SGOT 71.0 U/L (<34); CALCIUM LEVEL 8.0 MG/DL (8.3-10.6); CARBON DIOXIDE LEVEL 20.0 MMOL/L (20-31); CHLORIDE LEVEL 100.0 MMOL/L (98-107); CREATININE FOR GFR 1.07 MG/DL (0.70-1.30); GLOMERULAR FILTRATION RATE 76.1 (>49); POTASSIUM SERUM 3.4 MMOL/L (3.5-5.1); SODIUM LEVEL 135.0 MMOL/L (136-145)
[2025-08-06] MEDS: POTASSIUM CHLORIDE 10MEQ SR TABLET PO ONE ×2 (06:32→17:19)
[2025-08-06] MEDS: HEPARIN SOD 5000 UNITS/ML 1 ML VIAL/SYRINGE SQ SCH (20:18)
[2025-08-07 04:11] VITALS: BP 133/80; TEMP 97.8; O2SAT 97
[2025-08-07 06:07] LABS: PLATELET COUNT, AUTOMATED 345 10^3/uL (150-450)
[2025-08-07 06:38] LABS: ALT/SGPT 31.0 U/L (7.0-40); AST/SGOT 83.0 U/L (<34); CALCIUM LEVEL 8.8 MG/DL (8.3-10.6); CARBON DIOXIDE LEVEL 23.0 MMOL/L (20-31); CHLORIDE LEVEL 100.0 MMOL/L (98-107); CREATININE FOR GFR 0.97 MG/DL (0.70-1.30); GLOMERULAR FILTRATION RATE 85.6 (>49); MAGNESIUM LEVEL 1.8 MG/DL (1.8-2.4); POTASSIUM SERUM 5.2 MMOL/L (3.5-5.1); SODIUM LEVEL 136.0 MMOL/L (136-145)
[2025-08-07 06:45] LABS: INR 1.36
[2025-08-07 08:06] VITALS: BP 135/86; TEMP 98.3; O2SAT 94
[2025-08-07 12:00] VITALS: BP 128/80; TEMP 98; O2SAT 96
[2025-08-07 16:46] VITALS: BP 147/82; TEMP 97.3; O2SAT 100
[2025-08-07 19:36] VITALS: BP 121/78; TEMP 97.2; O2SAT 96
[2025-08-07] MEDS: SODIUM BICARBONATE 325 MG TAB PO SCH (20:25)
[2025-08-08] VITALS (9 sets, daily range): BP systolic 102–121; BP diastolic 60–75; TEMP 97.2–98.2; O2SAT 93–95
[2025-08-08 05:32] LABS: BASO # 0.1 10^3/uL (0.0-0.2); BASO % 0.2 % (0.0-1.0); EOS # 0.5 10^3/uL (0.0-0.5); EOS % 1.3 % (0.0-3.0); LYMPH # 2.0 10^3/uL (1.5-5.0); LYMPH % 5.4 % (24.0-44.0); MONO # 2.9 10^3/uL (0.0-0.8); MONO % 7.8 % (2.0-8.0); NEUTROPHILS # 31.0 10^3/uL (1.5-8.5); NEUTROPHILS % 84.1 % (36.0-66.0); PLATELET COUNT, AUTOMATED 330 10^3/uL (150-450)
[2025-08-08 05:54] LABS: ALT/SGPT 35 U/L (7.0-40); AST/SGOT 79 U/L (<34); CALCIUM LEVEL 8.1 MG/DL (8.3-10.6); CARBON DIOXIDE LEVEL 20 MMOL/L (20-31); CHLORIDE LEVEL 98 MMOL/L (98-107); CREATININE FOR GFR 0.81 MG/DL (0.70-1.30); GLOMERULAR FILTRATION RATE > 90.0 (>49); POTASSIUM SERUM 4.3 MMOL/L (3.5-5.1); SODIUM LEVEL 130 MMOL/L (136-145)
[2025-08-08] MEDS: MIDAZOLAM INJ 2 MG/2 ML VIAL IV PRN (16:02)
[2025-08-08] MEDS: NS (Normal Saline) 0.9% 1,000 ML IV SCH (16:03)
[2025-08-08] MEDS: SODIUM CHLORIDE 0.9% 1000 ML XX SCH (16:04)
[2025-08-08] MEDS: LIDOCAINE 1% MDV 20 ML VIAL SC SCH (16:33)
[2025-08-08] MEDS: ISOVUE-300 61% 100 ML VIAL IV SCH (16:37)
[2025-08-08 17:28] LABS: APPEARANCE, BODY FLUID HAZY (CLEAR); ASCITES FL COLOR YELLOW (COLORLESS); SOURCE, BODY FLUID ASCITES
[2025-08-09 04:18] VITALS: BP 106/64; TEMP 97.6; O2SAT 93
[2025-08-09 04:49] LABS: BASO # 0.1 10^3/uL (0.0-0.2); BASO % 0.2 % (0.0-1.0); EOS # 0.4 10^3/uL (0.0-0.5); EOS % 1.1 % (0.0-3.0); LYMPH # 2.2 10^3/uL (1.5-5.0); LYMPH % 6.4 % (24.0-44.0); MONO # 2.2 10^3/uL (0.0-0.8); MONO % 6.3 % (2.0-8.0); NEUTROPHILS # 29.0 10^3/uL (1.5-8.5); NEUTROPHILS % 84.2 % (36.0-66.0); PLATELET COUNT, AUTOMATED 295 10^3/uL (150-450)
[2025-08-09 05:09] LABS: ALT/SGPT 33.0 U/L (7.0-40); AST/SGOT 74.0 U/L (<34); CALCIUM LEVEL 7.9 MG/DL (8.3-10.6); CARBON DIOXIDE LEVEL 20.0 MMOL/L (20-31); CHLORIDE LEVEL 97.0 MMOL/L (98-107); CREATININE FOR GFR 0.94 MG/DL (0.70-1.30); GLOMERULAR FILTRATION RATE 88.9 (>49); POTASSIUM SERUM 4.1 MMOL/L (3.5-5.1); SODIUM LEVEL 130.0 MMOL/L (136-145)
[2025-08-09 05:57] LABS: INR 1.4
[2025-08-09 07:59] VITALS: BP 108/64; TEMP 97.7; O2SAT 92
[2025-08-09 08:16] LABS: OSMOLALITY SERUM 281.0 MOSM/KG (280-301)
[2025-08-09 11:09] LABS: SODIUM,RANDOM URINE < 10 MMOL/L
[2025-08-09] MEDS: METOPROLOL TART 25 MG TABLET PO SCH (12:00)
[2025-08-09 12:03] VITALS: BP 114/68; TEMP 97.3; O2SAT 96
[2025-08-09 15:55] VITALS: BP 109/62; TEMP 97; O2SAT 98
[2025-08-09 17:35] VITALS: BP 115/75; TEMP 97.3; O2SAT 96
[2025-08-09] MEDS: NS (Normal Saline) 0.9% 1,000 ML IV ONE (17:39)
[2025-08-09] MEDS: SODIUM CHLORIDE 1 GM TAB PO ONE (17:40)
[2025-08-09 18:26] LABS: CALCIUM LEVEL 7.9 MG/DL (8.3-10.6); CARBON DIOXIDE LEVEL 20.0 MMOL/L (20-31); CHLORIDE LEVEL 95.0 MMOL/L (98-107); CREATININE FOR GFR 0.97 MG/DL (0.70-1.30); GLOMERULAR FILTRATION RATE 85.6 (>49); POTASSIUM SERUM 4.3 MMOL/L (3.5-5.1); SODIUM LEVEL 128.0 MMOL/L (136-145)
[2025-08-09 19:32] VITALS: BP 111/75; TEMP 97.3; O2SAT 96
[2025-08-10 01:00] LABS: CALCIUM LEVEL 7.6 MG/DL (8.3-10.6); CARBON DIOXIDE LEVEL 18 MMOL/L (20-31); CHLORIDE LEVEL 99 MMOL/L (98-107); CREATININE FOR GFR 0.86 MG/DL (0.70-1.30); GLOMERULAR FILTRATION RATE > 90.0 (>49); POTASSIUM SERUM 4.0 MMOL/L (3.5-5.1); SODIUM LEVEL 130 MMOL/L (136-145)
[2025-08-10 04:02] VITALS: BP 112/68; TEMP 97.1; O2SAT 95
[2025-08-10 05:47] LABS: CALCIUM LEVEL 7.6 MG/DL (8.3-10.6); CARBON DIOXIDE LEVEL 18 MMOL/L (20-31); CHLORIDE LEVEL 99 MMOL/L (98-107); CREATININE FOR GFR 0.82 MG/DL (0.70-1.30); GLOMERULAR FILTRATION RATE > 90.0 (>49); POTASSIUM SERUM 4.1 MMOL/L (3.5-5.1); SODIUM LEVEL 130 MMOL/L (136-145)
[2025-08-10 06:38] LABS: BASO # 0.1 10^3/uL (0.0-0.2); BASO % 0.2 % (0.0-1.0); EOS # 0.2 10^3/uL (0.0-0.5); EOS % 0.5 % (0.0-3.0); LYMPH # 1.1 10^3/uL (1.5-5.0); LYMPH % 3.4 % (24.0-44.0); MONO # 2.3 10^3/uL (0.0-0.8); MONO % 7.1 % (2.0-8.0); NEUTROPHILS # 28.1 10^3/uL (1.5-8.5); NEUTROPHILS % 87.7 % (36.0-66.0); PLATELET COUNT, AUTOMATED 316 10^3/uL (150-450)
[2025-08-10 06:43] LABS: C REACTIVE PROTEIN QUANTITATIV 12.88 MG/DL (<1.0)
[2025-08-10 07:45] VITALS: BP 124/71; TEMP 97.7; O2SAT 99
[2025-08-10 08:22] VITALS: BP 131/75; TEMP 98.1; O2SAT 93
[2025-08-10] MEDS: SODIUM CHLORIDE 1 GM TAB PO ONE (10:55)
[2025-08-10] MEDS: SODIUM BICARBONATE 325 MG TAB PO ONE (10:55)
[2025-08-10 12:00] VITALS: BP 130/77; TEMP 98; O2SAT 96
[2025-08-10 12:48] LABS: CALCIUM LEVEL 8.2 MG/DL (8.3-10.6); CARBON DIOXIDE LEVEL 19 MMOL/L (20-31); CHLORIDE LEVEL 101 MMOL/L (98-107); CREATININE FOR GFR 0.82 MG/DL (0.70-1.30); GLOMERULAR FILTRATION RATE > 90.0 (>49); POTASSIUM SERUM 4.6 MMOL/L (3.5-5.1); SODIUM LEVEL 133 MMOL/L (136-145)
[2025-08-10] MEDS: SODIUM CHLORIDE 1 GM TAB PO SCH (17:45)
[2025-08-10 19:00] LABS: CALCIUM LEVEL 7.9 MG/DL (8.3-10.6); CARBON DIOXIDE LEVEL 19 MMOL/L (20-31); CHLORIDE LEVEL 99 MMOL/L (98-107); CREATININE FOR GFR 0.85 MG/DL (0.70-1.30); GLOMERULAR FILTRATION RATE > 90.0 (>49); POTASSIUM SERUM 4.5 MMOL/L (3.5-5.1); SODIUM LEVEL 131 MMOL/L (136-145)
[2025-08-10 19:30] VITALS: BP 124/78; TEMP 98.1; O2SAT 93
[2025-08-10] MEDS: SODIUM BICARBONATE 325 MG TAB PO SCH (20:25)
[2025-08-11 00:33] VITALS: BP 117/77; TEMP 98.2; O2SAT 95
[2025-08-11 00:43] LABS: CALCIUM LEVEL 8.2 MG/DL (8.3-10.6); CARBON DIOXIDE LEVEL 22.0 MMOL/L (20-31); CHLORIDE LEVEL 100.0 MMOL/L (98-107); CREATININE FOR GFR 1.02 MG/DL (0.70-1.30); GLOMERULAR FILTRATION RATE 80.6 (>49); POTASSIUM SERUM 4.9 MMOL/L (3.5-5.1); SODIUM LEVEL 134.0 MMOL/L (136-145)
[2025-08-11 04:17] VITALS: BP 119/78; TEMP 98.4; O2SAT 94
[2025-08-11 06:32] LABS: BASO # 0.1 10^3/uL (0.0-0.2); BASO % 0.2 % (0.0-1.0); EOS # 0.3 10^3/uL (0.0-0.5); EOS % 0.8 % (0.0-3.0); LYMPH # 1.0 10^3/uL (1.5-5.0); LYMPH % 2.7 % (24.0-44.0); MONO # 2.5 10^3/uL (0.0-0.8); MONO % 7.1 % (2.0-8.0); NEUTROPHILS # 30.9 10^3/uL (1.5-8.5); NEUTROPHILS % 88.0 % (36.0-66.0); PLATELET COUNT, AUTOMATED 369 10^3/uL (150-450)
[2025-08-11 06:57] LABS: CALCIUM LEVEL 8.2 MG/DL (8.3-10.6); CARBON DIOXIDE LEVEL 18 MMOL/L (20-31); CHLORIDE LEVEL 100 MMOL/L (98-107); CREATININE FOR GFR 0.88 MG/DL (0.70-1.30); GLOMERULAR FILTRATION RATE > 90.0 (>49); POTASSIUM SERUM 4.3 MMOL/L (3.5-5.1); SODIUM LEVEL 133 MMOL/L (136-145)
[2025-08-11 08:07] LABS: C REACTIVE PROTEIN QUANTITATIV 15.44 MG/DL (<1.0)
[2025-08-11] MEDS ORDERED: E-Z-PAQUE 96% w/w SUSP 176 GM BTL As Ordered ONE (08:22)
[2025-08-11] MEDS ORDERED: E-Z-GAS II EFFERVESCENT PACKET (SODIUM BICARB./CITRIC ACID/SIMETHICONE) As Ordered ONE (08:22)
[2025-08-11] MEDS ORDERED: E-Z-HD 98% w/w 340 GM SUSP BTL As Ordered ONE (08:23)
[2025-08-11 12:00] VITALS: BP 136/86; TEMP 97.4; O2SAT 96
[2025-08-11 13:01] LABS: CALCIUM LEVEL 8.4 MG/DL (8.3-10.6); CARBON DIOXIDE LEVEL 21.0 MMOL/L (20-31); CHLORIDE LEVEL 100.0 MMOL/L (98-107); CREATININE FOR GFR 1.05 MG/DL (0.70-1.30); GLOMERULAR FILTRATION RATE 77.8 (>49); POTASSIUM SERUM 4.9 MMOL/L (3.5-5.1); SODIUM LEVEL 135.0 MMOL/L (136-145)
[2025-08-11 19:18] LABS: CALCIUM LEVEL 8.3 MG/DL (8.3-10.6); CARBON DIOXIDE LEVEL 18.0 MMOL/L (20-31); CHLORIDE LEVEL 97.0 MMOL/L (98-107); CREATININE FOR GFR 1.11 MG/DL (0.70-1.30); GLOMERULAR FILTRATION RATE 72.8 (>49); POTASSIUM SERUM 4.5 MMOL/L (3.5-5.1); SODIUM LEVEL 132.0 MMOL/L (136-145)
[2025-08-11 19:43] VITALS: BP 122/79; TEMP 98; O2SAT 96
[2025-08-11 23:57] VITALS: BP 124/71; TEMP 97.9; O2SAT 91
[2025-08-12] VITALS (9 sets, daily range): BP systolic 117–147; BP diastolic 61–84; TEMP 97.9–98.3; O2SAT 92–97
[2025-08-12 01:28] LABS: CALCIUM LEVEL 8.0 MG/DL (8.3-10.6); CARBON DIOXIDE LEVEL 20.0 MMOL/L (20-31); CHLORIDE LEVEL 97.0 MMOL/L (98-107); CREATININE FOR GFR 1.34 MG/DL (0.70-1.30); GLOMERULAR FILTRATION RATE 58.1 (>49); POTASSIUM SERUM 5.0 MMOL/L (3.5-5.1); SODIUM LEVEL 130.0 MMOL/L (136-145)
[2025-08-12 06:05] LABS: BASO # 0.1 10^3/uL (0.0-0.2); BASO % 0.2 % (0.0-1.0); EOS # 0.4 10^3/uL (0.0-0.5); EOS % 1.0 % (0.0-3.0); LYMPH # 1.1 10^3/uL (1.5-5.0); LYMPH % 3.1 % (24.0-44.0); MONO # 2.5 10^3/uL (0.0-0.8); MONO % 7.0 % (2.0-8.0); NEUTROPHILS # 31.0 10^3/uL (1.5-8.5); NEUTROPHILS % 87.7 % (36.0-66.0); PLATELET COUNT, AUTOMATED 421 10^3/uL (150-450)
[2025-08-12 06:37] LABS: CALCIUM LEVEL 8.2 MG/DL (8.3-10.6); CARBON DIOXIDE LEVEL 18.0 MMOL/L (20-31); CHLORIDE LEVEL 98.0 MMOL/L (98-107); CREATININE FOR GFR 1.44 MG/DL (0.70-1.30); GLOMERULAR FILTRATION RATE 53.3 (>49); POTASSIUM SERUM 4.3 MMOL/L (3.5-5.1); SODIUM LEVEL 132.0 MMOL/L (136-145)
[2025-08-12 07:32] LABS: ALT/SGPT 34.0 U/L (7.0-40); AST/SGOT 76.0 U/L (<34); IRON (FE) 22.0 UG/DL (65-175); PERCENT SATURATION 15.6 % (19.7-50.0)
[2025-08-13] VITALS (9 sets, daily range): BP systolic 115–128; BP diastolic 67–77; TEMP 97.9–98.7; O2SAT 95–100
[2025-08-13 06:06] LABS: BASO # 0.1 10^3/uL (0.0-0.2); BASO % 0.2 % (0.0-1.0); EOS # 0.4 10^3/uL (0.0-0.5); EOS % 1.3 % (0.0-3.0); LYMPH # 1.4 10^3/uL (1.5-5.0); LYMPH % 4.5 % (24.0-44.0); MONO # 2.1 10^3/uL (0.0-0.8); MONO % 6.7 % (2.0-8.0); NEUTROPHILS # 27.4 10^3/uL (1.5-8.5); NEUTROPHILS % 86.3 % (36.0-66.0); PLATELET COUNT, AUTOMATED 396 10^3/uL (150-450)
[2025-08-14] VITALS (12 sets, daily range): BP systolic 106–133; BP diastolic 63–81; TEMP 97.6–98.8; O2SAT 90–99
[2025-08-14 06:09] LABS: BASO # 0.1 10^3/uL (0.0-0.2); BASO % 0.2 % (0.0-1.0); EOS # 0.4 10^3/uL (0.0-0.5); EOS % 1.2 % (0.0-3.0); LYMPH # 1.6 10^3/uL (1.5-5.0); LYMPH % 5.2 % (24.0-44.0); MONO # 2.2 10^3/uL (0.0-0.8); MONO % 7.3 % (2.0-8.0); NEUTROPHILS # 25.9 10^3/uL (1.5-8.5); NEUTROPHILS % 85.1 % (36.0-66.0); PLATELET COUNT, AUTOMATED 394 10^3/uL (150-450)
[2025-08-14 06:56] LABS: BASO # 0.1 10^3/uL (0.0-0.2); BASO % 0.2 % (0.0-1.0); EOS # 0.3 10^3/uL (0.0-0.5); EOS % 1.1 % (0.0-3.0); LYMPH # 1.6 10^3/uL (1.5-5.0); LYMPH % 5.2 % (24.0-44.0); MONO # 2.0 10^3/uL (0.0-0.8); MONO % 6.6 % (2.0-8.0); NEUTROPHILS # 25.5 10^3/uL (1.5-8.5); NEUTROPHILS % 85.8 % (36.0-66.0); PLATELET COUNT, AUTOMATED 372 10^3/uL (150-450)
[2025-08-14] MEDS: METOPROLOL TART 12.5 MG PER 1/2 TAB PO ONE (07:06)
[2025-08-14] MEDS: MIDODRINE 5 MG TAB PO ONE (07:07)
[2025-08-14 07:18] LABS: CALCIUM LEVEL 8.3 MG/DL (8.3-10.6); CARBON DIOXIDE LEVEL 19.0 MMOL/L (20-31); CHLORIDE LEVEL 100.0 MMOL/L (98-107); CREATININE FOR GFR 1.5 MG/DL (0.70-1.30); GLOMERULAR FILTRATION RATE 50.7 (>49); POTASSIUM SERUM 3.9 MMOL/L (3.5-5.1); SODIUM LEVEL 132.0 MMOL/L (136-145)
[2025-08-14 07:37] LABS: C REACTIVE PROTEIN QUANTITATIV 11.03 MG/DL (<1.0)
[2025-08-14] MEDS: MIDODRINE 5 MG TAB PO SCH (12:47)
[2025-08-14] MEDS: BISACODYL 10 MG SUPP PR SCH (12:47)
[2025-08-15] VITALS (10 sets, daily range): BP systolic 110–134; BP diastolic 58–75; TEMP 97.6–98.8; O2SAT 94–98
[2025-08-15 06:38] LABS: BASO # 0.1 10^3/uL (0.0-0.2); BASO % 0.2 % (0.0-1.0); EOS # 0.3 10^3/uL (0.0-0.5); EOS % 1.2 % (0.0-3.0); LYMPH # 1.9 10^3/uL (1.5-5.0); LYMPH % 6.7 % (24.0-44.0); MONO # 2.3 10^3/uL (0.0-0.8); MONO % 8.2 % (2.0-8.0); NEUTROPHILS # 22.8 10^3/uL (1.5-8.5); NEUTROPHILS % 82.6 % (36.0-66.0); PLATELET COUNT, AUTOMATED 309 10^3/uL (150-450)
[2025-08-15 08:10] LABS: CALCIUM LEVEL 8.2 MG/DL (8.3-10.6); CARBON DIOXIDE LEVEL 19.0 MMOL/L (20-31); CHLORIDE LEVEL 100.0 MMOL/L (98-107); CREATININE FOR GFR 1.5 MG/DL (0.70-1.30); GLOMERULAR FILTRATION RATE 50.7 (>49); POTASSIUM SERUM 3.9 MMOL/L (3.5-5.1); SODIUM LEVEL 132.0 MMOL/L (136-145)
[2025-08-15] MEDS: NS (Normal Saline) 0.9% 1,000 ML IV ONE ×2 (08:39→11:56)
[2025-08-15 10:27] LABS: ALPHA 1 ANTITRYPSIN 349 mg/dL (83-199); CERULOPLASMIN 28.0 mg/dL (14-30)
[2025-08-15 21:52] LABS: CALCIUM LEVEL 8.1 MG/DL (8.3-10.6); CARBON DIOXIDE LEVEL 17.0 MMOL/L (20-31); CHLORIDE LEVEL 106.0 MMOL/L (98-107); CREATININE FOR GFR 1.42 MG/DL (0.70-1.30); GLOMERULAR FILTRATION RATE 54.2 (>49); POTASSIUM SERUM 3.9 MMOL/L (3.5-5.1); SODIUM LEVEL 135.0 MMOL/L (136-145)
[2025-08-16 04:24] VITALS: BP 135/80; TEMP 97.9; O2SAT 96
[2025-08-16 07:05] LABS: BASO # 0.1 10^3/uL (0.0-0.2); BASO % 0.2 % (0.0-1.0); EOS # 0.3 10^3/uL (0.0-0.5); EOS % 1.4 % (0.0-3.0); LYMPH # 1.8 10^3/uL (1.5-5.0); LYMPH % 7.2 % (24.0-44.0); MONO # 2.0 10^3/uL (0.0-0.8); MONO % 8.2 % (2.0-8.0); NEUTROPHILS # 20.2 10^3/uL (1.5-8.5); NEUTROPHILS % 81.9 % (36.0-66.0); PLATELET COUNT, AUTOMATED 369 10^3/uL (150-450)
[2025-08-16 07:22] LABS: CALCIUM LEVEL 8.0 MG/DL (8.3-10.6); CARBON DIOXIDE LEVEL 16.0 MMOL/L (20-31); CHLORIDE LEVEL 104.0 MMOL/L (98-107); CREATININE FOR GFR 1.33 MG/DL (0.70-1.30); GLOMERULAR FILTRATION RATE 58.6 (>49); POTASSIUM SERUM 3.8 MMOL/L (3.5-5.1); SODIUM LEVEL 136.0 MMOL/L (136-145)
[2025-08-16] MEDS: SODIUM BICARBONATE 325 MG TAB PO SCH (08:58)
[2025-08-16] MEDS: SODIUM BICARBONATE 8.4% INJ 50ML SYRINGE IV STA (08:58)
[2025-08-16 12:25] VITALS: BP 132/81; TEMP 98.6; O2SAT 96
[2025-08-16 12:54] LABS: CALCIUM LEVEL 8.1 MG/DL (8.3-10.6); CARBON DIOXIDE LEVEL 20.0 MMOL/L (20-31); CHLORIDE LEVEL 101.0 MMOL/L (98-107); CREATININE FOR GFR 1.41 MG/DL (0.70-1.30); GLOMERULAR FILTRATION RATE 54.6 (>49); POTASSIUM SERUM 3.9 MMOL/L (3.5-5.1); SODIUM LEVEL 134.0 MMOL/L (136-145)
[2025-08-16 15:27] LABS: SOLUBLE TRANSFERRIN RECEPTOR 0.80 mg/L (0.76-1.76)
[2025-08-16 17:28] VITALS: BP 132/79; TEMP 97.7; O2SAT 95
[2025-08-17 01:02] LABS: ANTI-SMOOTH MUSCLE ANTIBODY < 20 U (<20)
[2025-08-17 04:45] VITALS: BP 115/73; TEMP 97.9; O2SAT 94
[2025-08-17 05:54] LABS: BASO # 0.1 10^3/uL (0.0-0.2); BASO % 0.2 % (0.0-1.0); EOS # 0.3 10^3/uL (0.0-0.5); EOS % 1.3 % (0.0-3.0); LYMPH # 1.9 10^3/uL (1.5-5.0); LYMPH % 7.8 % (24.0-44.0); MONO # 2.3 10^3/uL (0.0-0.8); MONO % 9.4 % (2.0-8.0); NEUTROPHILS # 19.6 10^3/uL (1.5-8.5); NEUTROPHILS % 80.1 % (36.0-66.0); PLATELET COUNT, AUTOMATED 411 10^3/uL (150-450)
[2025-08-17 06:18] LABS: CALCIUM LEVEL 7.9 MG/DL (8.3-10.6); CARBON DIOXIDE LEVEL 17.0 MMOL/L (20-31); CHLORIDE LEVEL 103.0 MMOL/L (98-107); CREATININE FOR GFR 1.49 MG/DL (0.70-1.30); GLOMERULAR FILTRATION RATE 51.1 (>49); POTASSIUM SERUM 3.9 MMOL/L (3.5-5.1); SODIUM LEVEL 134.0 MMOL/L (136-145)
[2025-08-17 12:00] VITALS: BP 112/71; TEMP 98; O2SAT 96
[2025-08-17] MEDS ORDERED: BISACODYL 10 MG SUPP PR PRN (16:20)
[2025-08-17 17:45] LABS: CALCIUM LEVEL 7.7 MG/DL (8.3-10.6); CARBON DIOXIDE LEVEL 16.0 MMOL/L (20-31); CHLORIDE LEVEL 101.0 MMOL/L (98-107); CREATININE FOR GFR 1.65 MG/DL (0.70-1.30); GLOMERULAR FILTRATION RATE 45.2 (>49); POTASSIUM SERUM 4.5 MMOL/L (3.5-5.1); SODIUM LEVEL 131.0 MMOL/L (136-145)
[2025-08-17 20:10] VITALS: BP 115/79; TEMP 98.2; O2SAT 93
[2025-08-17 23:56] LABS: ANTI-MITOCHONDRIAL ANTIBODY Negative (Negative)
[2025-08-18] VITALS (7 sets, daily range): BP systolic 115–142; BP diastolic 71–86; TEMP 97.9–98.5; O2SAT 93–97
[2025-08-18 06:29] LABS: PLATELET COUNT, AUTOMATED 412 10^3/uL (150-450)
[2025-08-18 06:52] LABS: INR 1.34
[2025-08-18 06:56] LABS: LDH LACTATE DEHYDROGENASE 192.0 U/L (120-246)
[2025-08-18 06:57] LABS: ALT/SGPT 24.0 U/L (7.0-40); AST/SGOT 67.0 U/L (<34); CALCIUM LEVEL 7.9 MG/DL (8.3-10.6); CARBON DIOXIDE LEVEL 16.0 MMOL/L (20-31); CHLORIDE LEVEL 99.0 MMOL/L (98-107); CREATININE FOR GFR 1.95 MG/DL (0.70-1.30); GLOMERULAR FILTRATION RATE 37.0 (>49); POTASSIUM SERUM 4.0 MMOL/L (3.5-5.1); SODIUM LEVEL 132.0 MMOL/L (136-145)
[2025-08-18] MEDS ORDERED: GLUCOSE 4 GM CHEW PO PRN (07:35)
[2025-08-18] MEDS ORDERED: DEXTROSE 50% 50 ML SYRINGE IV PRN (07:35)
[2025-08-18] MEDS ORDERED: GLUCAGON INJ 1 MG VIAL SC PRN (07:35)
[2025-08-18 11:01] LABS: ASCITES FL COLOR YELLOW (COLORLESS); SOURCE, BODY FLUID ASCITES
[2025-08-18 11:02] LABS: APPEARANCE, BODY FLUID CLEAR (CLEAR)
[2025-08-18] MEDS: SODIUM BICARBONATE 325 MG TAB PO SCH (16:58)
[2025-08-18 17:38] LABS: LIVER-KIDNEY MICROSOMAL ABY <= 20.0 U (<=20.0)
[2025-08-18] MEDS: RAMELTEON 8 MG TAB PO PRN (22:16)
[2025-08-19 04:58] VITALS: BP 123/66; TEMP 97.9; O2SAT 94
[2025-08-19 07:24] LABS: CALCIUM LEVEL 7.3 MG/DL (8.3-10.6); CARBON DIOXIDE LEVEL 17.0 MMOL/L (20-31); CHLORIDE LEVEL 99.0 MMOL/L (98-107); CREATININE FOR GFR 2.33 MG/DL (0.70-1.30); GLOMERULAR FILTRATION RATE 29.9 (>49); POTASSIUM SERUM 4.2 MMOL/L (3.5-5.1); SODIUM LEVEL 131.0 MMOL/L (136-145)
[2025-08-19 07:47] LABS: BASO # 0.1 10^3/uL (0.0-0.2); BASO % 0.2 % (0.0-1.0); EOS # 0.3 10^3/uL (0.0-0.5); EOS % 0.9 % (0.0-3.0); LYMPH # 2.1 10^3/uL (1.5-5.0); LYMPH % 7.3 % (24.0-44.0); MONO % 9.6 % (2.0-8.0); NEUTROPHILS # 23.7 10^3/uL (1.5-8.5); NEUTROPHILS % 81.1 % (36.0-66.0); PLATELET COUNT, AUTOMATED 371 10^3/uL (150-450)
[2025-08-19 07:48] LABS: MONO # 2.8 10^3/uL (0.0-0.8)
[2025-08-19 09:51] VITALS: BP 119/73; TEMP 97.8; O2SAT 98
[2025-08-19 12:00] VITALS: BP 177/78; TEMP 97.8; O2SAT 96
[2025-08-19 12:18] VITALS: BP 130/63; TEMP 97.7; O2SAT 97
[2025-08-19 15:01] VITALS: BP 128/76; TEMP 98; O2SAT 96
[2025-08-19 20:47] VITALS: BP 121/73; TEMP 98; O2SAT 95
[2025-08-20 04:21] VITALS: BP 128/76; TEMP 97.9; O2SAT 96
[2025-08-20 07:56] LABS: CALCIUM LEVEL 7.5 MG/DL (8.3-10.6); CARBON DIOXIDE LEVEL 20.0 MMOL/L (20-31); CHLORIDE LEVEL 94.0 MMOL/L (98-107); CREATININE FOR GFR 2.65 MG/DL (0.70-1.30); GLOMERULAR FILTRATION RATE 25.6 (>49); POTASSIUM SERUM 4.7 MMOL/L (3.5-5.1); SODIUM LEVEL 129.0 MMOL/L (136-145)
[2025-08-20] MEDS ORDERED: FUROSEMIDE 40 MG TAB PO SCH (09:00)
[2025-08-20 12:00] VITALS: BP 106/57; TEMP 98.4; O2SAT 96
[2025-08-20 20:35] VITALS: BP 118/68; TEMP 97.9; O2SAT 96
[2025-08-21 04:14] VITALS: BP 117/68; TEMP 98.4; O2SAT 95
[2025-08-21 08:02] LABS: BASO # 0.1 10^3/uL (0.0-0.2); BASO % 0.2 % (0.0-1.0); EOS # 0.2 10^3/uL (0.0-0.5); EOS % 0.6 % (0.0-3.0); LYMPH # 1.8 10^3/uL (1.5-5.0); LYMPH % 6.1 % (24.0-44.0); MONO % 9.2 % (2.0-8.0); NEUTROPHILS # 24.9 10^3/uL (1.5-8.5); NEUTROPHILS % 82.7 % (36.0-66.0); PLATELET COUNT, AUTOMATED 300 10^3/uL (150-450)
[2025-08-21 08:06] LABS: MONO # 2.8 10^3/uL (0.0-0.8)
[2025-08-21] MEDS ORDERED: MIDO5TA PO (08:10)
[2025-08-21] MEDS ORDERED: SODI325T9 PO (08:10)
[2025-08-21] MEDS ORDERED: LEVO75TAB PO (08:10)
[2025-08-21 08:14] LABS: CALCIUM LEVEL 7.1 MG/DL (8.3-10.6); CARBON DIOXIDE LEVEL 16.0 MMOL/L (20-31); CHLORIDE LEVEL 98.0 MMOL/L (98-107); CREATININE FOR GFR 2.4 MG/DL (0.70-1.30); GLOMERULAR FILTRATION RATE 28.9 (>49); MAGNESIUM LEVEL 1.0 MG/DL (1.8-2.4); POTASSIUM SERUM 4.8 MMOL/L (3.5-5.1); SODIUM LEVEL 128.0 MMOL/L (136-145)
[2025-08-21] MEDS: MAG SULF 1GM/100ML (MAG RUN) 1 GM in IV 1 EA IV STA (08:36)
[2025-08-21 08:43] VITALS: BP 116/73
[2025-08-21] MEDS: FUROSEMIDE 40 MG TAB PO SCH (08:43)
[2025-08-21] MEDS: MAGNESIUM OXIDE 400 MG TAB PO ONE (08:44)
[2025-08-21] MEDS: SPIRONOLACTONE 50 MG TAB PO SCH (08:44)
[2025-08-21] MEDS ORDERED: SPIRONOLACTONE 50 MG TAB PO SCH (09:00)
[2025-08-21] MEDS ORDERED: MAG SULF 1GM/100ML (MAG RUN) 1 GM in IV 1 EA IV SCH (10:00)
== END 2025-08-21 09:09 | disposition short-term general hospital (02) | DRG 871 ==
LOC: M ED 13:26 → EDBD 13:26 → M ED INP 19:44 → M PCU 23:26 → M MSPAV 08-10 08:37
PROVIDERS: ADMIT Internal Medicine; ATTEND Student in an Organized Health Care Education/Training Program
PROC: 0W9G3ZX Drainage of Peritoneal Cavity, Percutaneous Approach, Diagnostic (ICD-10-PCS; 2025-08-03)
PROC: 0FB13ZX Excision of Right Lobe Liver, Percutaneous Approach, Diagnostic (ICD-10-PCS; 2025-08-08)
PROC: 0W9G3ZZ Drainage of Peritoneal Cavity, Percutaneous Approach (ICD-10-PCS; principal; 2025-08-08 15:00)
PROC: 0W9G3ZZ Drainage of Peritoneal Cavity, Percutaneous Approach (ICD-10-PCS; 2025-08-18)
DX: A41.9 Sepsis, unspecified organism (principal); K65.2 Spontaneous bacterial peritonitis; K76.7 Hepatorenal syndrome; N17.9 Acute kidney failure, unspecified; E87.20 Acidosis, unspecified; J98.11 Atelectasis; K76.6 Portal hypertension; E87.1 Hypo-osmolality and hyponatremia; K56.7 Ileus, unspecified; K70.11 Alcoholic hepatitis with ascites; K76.82 Hepatic encephalopathy; F10.11 Alcohol abuse, in remission; K31.89 Other diseases of stomach and duodenum; E78.5 Hyperlipidemia, unspecified; K21.9 Gastro-esophageal reflux disease without esophagitis; R32 Unspecified urinary incontinence; F17.210 Nicotine dependence, cigarettes, uncomplicated; E87.6 Hypokalemia; E86.1 Hypovolemia; E88.09 Other disorders of plasma-protein metabolism, not elsewhere classified; D53.9 Nutritional anemia, unspecified; D63.8 Anemia in other chronic diseases classified elsewhere; E83.42 Hypomagnesemia; K70.31 Alcoholic cirrhosis of liver with ascites; N18.9 Chronic kidney disease, unspecified; R33.9 Retention of urine, unspecified; E80.6 Other disorders of bilirubin metabolism; R11.2 Nausea with vomiting, unspecified; D72.829 Elevated white blood cell count, unspecified; R53.1 Weakness; D47.3 Essential (hemorrhagic) thrombocythemia; R19.7 Diarrhea, unspecified; R13.10 Dysphagia, unspecified; Z96.643 Presence of artificial hip joint, bilateral; Z79.82 Long term (current) use of aspirin; Z79.899 Other long term (current) drug therapy; Z88.0 Allergy status to penicillin; Z85.46 Personal history of malignant neoplasm of prostate